=== PATIENT | male | born 1930 | race Caucasian/White ===

== ENCOUNTER 2017-10-25 15:54 | Outpatient (CLI) | payer MEDICARE, BC, OTHER ==
--- NOTE | 2017-10-25 19:37 | ULT ---
RIGHT LOWER EXTREMITY VENOUS DOPPLER ULTRASOUND 10/26/17 COMPARISON: None. HISTORY: Right leg pain. TECHNIQUE: Multiplanar padilla scale sonographic imaging of the venous structures of the right lower extremity obta ined with color flow and spectral analysis. FINDINGS: The right common femoral vein, greater saphenous vein, profunda femoral vein, femoral vein, popliteal vein, and posterior tibial vein are patent. There is normal blood flow. augmentation and compression within the deep venous system on the right. No evidence for right lower extremity DVT. There is a large mildly complexed hypoechoic cystic lesion in the popliteal fossa with no internal bl ood flow measuring up to 5.4 x 1.8 x 3.5 cm, suggesting a prominent complex Villalobos's cyst. IMPRESSION: 1. No evidence for deep venous thrombosis of the right lower extremity. 2. 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 POS: [facility]
== END 2017-10-25 15:55 | disposition home or self-care (01) ==
LOC: ULT 15:54
PROVIDERS: ATTEND Physical Medicine & Rehabilitation
DX: R60.0 Localized edema (principal)

== ENCOUNTER 2018-07-20 12:17 | Outpatient (CLI) | payer MEDICARE, BC, OTHER ==
[~2018-07-20 12:17] MED LIST: Gadobenate Dimeglumine 529 MG/1 ML (20ML VIAL) ONE
--- NOTE | 2018-07-20 14:31 | MRI ---
MRI BRAIN WITH AND WITHOUT CONTRAST: DATE: 07-20-18 HISTORY: 88-year-old male with H02.409 ptosis, and headache. TECHNIQUE: Multiple sequences obtained in axial, sagittal, and coronal planes; pre and post IV injection of gado linium-based contrast agent: 17 mL MultiHance FINDINGS: The ventricles are normal in size and configuration. There is no major intraaxial signal abnormality , restricted diffusion, abnormal intraaxial enhancement, mass, midline shift or any other mass effect , recent intraaxial hemorrhage, or extraaxial fluid collection. 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 Tiny subcentimeter focal T2 hyperintense lesion in the left side of the ajke is also consistent with mild chronic ischemic what matter change there. IMPRESSION: Essentially normal. kaden POS: [facility]
== END 2018-07-20 12:18 | disposition home or self-care (01) ==
LOC: SCSMRI 12:17
PROVIDERS: ATTEND Psychiatry & Neurology Neurology
DX: H02.409 Unspecified ptosis of unspecified eyelid (principal)
CPT/HCPCS: 70553; 82565; A9579

== ENCOUNTER 2018-11-03 13:12 | Emergency (ER) | payer MEDICARE, BC, OTHER ==
[2018-11-03] MEDS ORDERED: HYDROcodone/Acetaminophen 5/325 mg Tablet ONE (13:45)
--- NOTE | 2018-11-03 13:58 | RAD ---
PA AND LATERAL VIEWS OF THE CHEST: HISTORY: Fall, left-sided chest pain. FINDINGS/IMPRESSION: Comparison is made with the exam of 06/20/2018. The heart size is normal. The aorta is tortuous. There is a suggestion of fractures involving the l eft 6th and 7th ribs. No focal areas of consolidation, pneumothoraces are seen. There may be small pleural effusions posteriorly. POS: [facility]
[2018-11-03 14:03] LABS: #Eosinphils 0.4 thou/uL (0.0-0.7); #Lymphocytes 1.1 thou/uL (1.20-3.40); #Monocytes 0.8 thou/uL (0.11-0.59); #Neutrophils 3.4 thou/uL (1.40-6.50); %Basophils 0.8 % (0.0-1.0); %Eosinophils 6.4 % (0.0-10.0); %Lymphocytes 20.1 % (21.0-51.0); %Monocytes 13.6 % (0.0-10.0); %Neutrophils 59.2 % (42.0-75.0); Hemoglobin 13.3 g/dL (14.0-18.0); Mean Corpuscular HGB CONC 34.2 g/dL (32.0-36.0); Mean Corpuscular Hemoglobin 35.4 pg (27.0-31.0); Mean Platelet Volume 7.2 fL (7.4-10.4); Platelet Count 198 thou/uL (130-400); RBC Distribution Width 12.4 % (11.5-14.5); Red Blood Cell (RBC) Count 3.77 mill/uL (4.70-6.10); White Blood Cell (WBC) Count 5.7 thou/uL (4.8-10.8)
[2018-11-03 14:09] LABS: INR-International Normal Ratio 1.1; PTT 32.1 SEC (22.9-36.1); Prothrombin Time 14.3 SEC (12.0-14.7)
[2018-11-03 14:25] LABS: ALT (SGPT) 16 U/L (8-55); AST (SGOT) 19 U/L (5-34); Albumin 4.3 g/dL (3.4-4.8); Alkaline Phosphatase 84 U/L (40-150); Anion Gap 11 mmol/L (10-20); BUN (Urea Nitrogen) 26 mg/dL (8.4-25.7); Bilirubin, Total 0.5 mg/dL (0.2-1.2); Calc. Creatinine Clearance 0 mL/min (70-130); Calcium 9.1 mg/dL (7.8-10.44); Carbon Dioxide 25 mmol/L (23-31); Chloride 105 mmol/L (98-107); Estimated GFR-MDRD 49; Globulin 3.6 g/dL (2.4-3.5); Glucose 134 mg/dL (83-110); Potassium 4.2 mmol/L (3.5-5.1); Protein, Total 7.9 g/dL (5.8-8.1); Sodium 137 mmol/L (136-145)
[2018-11-03] MEDS ORDERED: traMADol HCl 50 MG TAB ONE (15:13)
--- NOTE | 2018-11-04 13:58 | EKG ---
Test Reason : Blood Pressure : / mmHG Vent. Rate : 053 BPM Atrial Rate : 053 BPM P-R Int : 202 ms QRS Dur : 104 ms QT Int : 454 ms P-R-T Axes : 033 016 032 degrees QTc Int : 426 ms Sinus bradycardia Otherwise normal ECG Confirmed by ANAM DONALDSON D.O. ([id number]), clinical editor CAROLYN MITTAL ([id number]) on 11/04/2018 1:58:51 PM Referred By: Confirmed By:ANAM DONALDSON D.O.
== END 2018-11-03 15:19 | disposition home or self-care (01) ==
LOC: ERS 13:12
DX: S22.42XA Multiple fractures of ribs, left side, initial encounter for closed fracture (principal); I25.2 Old myocardial infarction; W18.30XA Fall on same level, unspecified, initial encounter
CPT/HCPCS: 36415; 71046; 80053; 84484; 85025; 85610; 85730; 93005

== ENCOUNTER 2020-11-30 19:02 | Emergency (ER) | payer MEDICARE, BC, OTHER ==
[2020-11-30] MEDS ORDERED: Boostrix 0.5 ML (Tdap) VIAL ONE (19:27)
--- NOTE | 2020-11-30 20:15 | CT ---
CT OF BRAIN PERFORMED WITHOUT CONTRAST ENHANCEMENT: History: Head injury status post fall. FINDINGS: There is generalized ventricular and sulcal prominence. There are no signs of intracerebral hemorrhag e or extraaxial fluid collections. Mastoid air cells and visualized sinuses are clear. IMPRESSION: No acute intracranial abnormalities. POS: [facility]
== END 2020-11-30 20:13 | disposition home or self-care (01) ==
LOC: ERS 19:02
DX: S00.03XA Contusion of scalp, initial encounter (principal); Z23 Encounter for immunization; I25.2 Old myocardial infarction; I48.91 Unspecified atrial fibrillation; W01.0XXA Fall on same level from slipping, tripping and stumbling without subsequent striking against object, initial encounter
CPT/HCPCS: 70450; 90471; 90715

== ENCOUNTER 2021-04-07 10:54 | Outpatient (CLI) | payer MEDICARE, BC, OTHER | END 2021-04-07 10:55 | disposition home or self-care (01) | LOC: BICRAD 10:54 | PROVIDERS: ATTEND Internal Medicine Pulmonary Disease | DX: R06.00 Dyspnea, unspecified (principal) | CPT/HCPCS: 71046 ==